=== PATIENT | female | born 1975 | race Hispanic/Latino ===

== ENCOUNTER 2025-03-29 16:04 | Emergency (ER) | payer SELFPAY ==
[2025-03-29 16:06] VITALS: BP 143/96
[2025-03-29 16:34] VITALS: BMI 28.0
--- NOTE | 2025-03-29 16:39 | EDRN ---
Alana Hopper CLOTH SPONGER in room w/pt at this time. Language line in room.
[2025-03-29 16:43] LABS: Hematocrit 38.8 % (37.0-47.0); Hemoglobin 13.8 g/dL (12.0-16.0); Mean Corp Hgb Conc. 35.6 g/dL (33.0-37.0); Mean Corpuscular Volume 86.2 fL (81.0-99.0); Nucleated Red Blood Cells % 0 %; Platelet Count 244 10^3/uL (130-400); Red Cell Dist. Width 12.0 % (11.5-14.5)
[2025-03-29] MEDS: NSS 1000 IV (16:44)
[2025-03-29] MEDS: DILAUDID 0.5 MG IV (16:44)
[2025-03-29] MEDS: ZOFRAN 4 MG IV (16:45)
[2025-03-29 16:51] VITALS: BP 144/88
[2025-03-29 16:53] LABS: HCG, Serum Qualitative Screen Negative
[2025-03-29 16:57] LABS: ALT (SGPT) 40 U/L (0-35); AST (SGOT) 29 U/L (14-36); Albumin 4.8 g/dl (3.5-5.0); Alkaline Phosphatase 121 U/L (38-126); Blood Urea Nitrogen 15 mg/dl (7-17); Calcium 9.0 mg/dl (8.4-10.2); Carbon Dioxide 25 mmol/L (22-30); Chloride 103 mmol/L (98-107); Estimated Creatinine Clearance 85 ml/min; Glucose 131 mg/dl (70-99); Lipase 136 U/L (23-300); Potassium 3.6 mmol/L (3.5-5.1); Sodium 138 mmol/L (135-145); Total Protein 7.8 g/dl (6.3-8.2); eGFR > 60.00
--- NOTE | 2025-03-29 17:13 | EDRN ---
Pt is aware urine spec is needed w/ cup and wipes placed in BR.
[2025-03-29 18:19] VITALS: BP 129/80
--- NOTE | 2025-03-29 18:27 | EDRN ---
Urine spec obtained and sent. Pt is pain free. Pt is awaiting to go to [facility] a this time.
[2025-03-29 18:37] LABS: Urine Character Slightly Cloudy (Clear)
--- NOTE | 2025-03-29 18:38 | EDRN ---
[facility] cancelled at this time.
[2025-03-29 18:47] LABS: Urine Squamous Cell 0-2 /LPF (Few); Urine White Cell 0-2 /HPF (0-5)
--- NOTE | 2025-03-29 18:48 | ED.GENMED ---
History of Present Illness
General
Chief Complaint: Abdominal Pain
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
Exam Limitations: none
Time Seen by Provider: 03/29/25 16:36
Nursing documentation reviewed up to this point in time: agreed with
History of Present Illness
History of Present Illness:
Patient to the emergency department with complaint of severe left lower quadrant abdominal pain. Symptoms started today. Denies fever or chills. Reports nausea and vomiting. Denies any diarrhea. Pain does not radiate. Has no aggravating or
alleviating factors. Denies any urinary symptoms. No prior history of same. She was brought to the emergency department by her [id number] for evaluation.
Past History
Past History
ED Past Medical History: HTN and Hypercholesterolemia
Review of Systems
Review of Systems
Allergies reviewed?: Yes
All Other Systems: ROS reviewed and negative except as documented in HPI and ROS
Constitutional: Reports no symptoms
EENT: Reports no symptoms
Respiratory: Reports no symptoms
Cardiac: Reports no symptoms
ABD/GI: Reports abdominal pain (Severe left lower quadrant abdominal pain), nausea and vomiting
: Reports no symptoms
Musculoskeletal: Reports no symptoms
Skin: Reports no symptoms
Neurological: Reports no symptoms
Psychiatric: Reports no symptoms
Phy Exam
General Physical Exam
General Presentation: moderate distress
General age: appears stated age
General Skin: warm and dry
General Habitus: normal
General Mental: alert
Cardiovascular Exam
Cardiovascular Exam: regular rate/rhythm and no edema
Gastrointestinal Exam
Gastrointestinal Exam: normal bowel sounds, soft, no organomegaly, no pulsatile mass and non distended
Palpation: left upper quadrant: Moderate tenderness, left lower quadrant: No tenderness, right upper quadrant: No tenderness and right lower quadrant: No tenderness
Musculoskeletal Exam
Musculoskeletal Exam: full ROM
Skin Exam
Skin Exam: normal color, warm/dry and no rash
Psychiatric Exam
Psychiatric Exam: normal mood/affect
Course
Orders/Labs/Results
Orders:
Orders
03/29/25 16:18
Cardiac Monitoring- Treatment ONCE
IV Insert/Care/Rem.- Treatment PRN
03/29/25 16:22
Test Result ONCE
03/29/25 16:29
Complete Blood Count/With Diff Urgent
Comprehensive Metabolic Panel Urgent
HCG, Serum Qualitative Screen Urgent
Lipase Urgent
03/29/25 16:40
0.9% Sodium Chloride 1000 ml [Nss] 1,000 ml IV BOLUS
HYDROmorphone [Dilaudid] 0.5 mg IV NOW STA
Ondansetron Injectable [Zofran] 4 mg IV NOW STA
03/29/25 16:41
CT Abd/pelvis W Iv Cont Urgent
Comment:
Reason For Exam: LLQ pain
HYDROmorphone [Dilaudid] 0.5 mg .ROUTE .STK-MED ONE
Ondansetron Injectable [Zofran] 4 mg .ROUTE .STK-MED ONE
03/29/25 18:24
Urinalysis Reflex To Culture Urgent
Date Specimen was Collected: 03/29/25
Time Specimen was Collected: 18:21
Urine Microscopic Reflex Cult Urgent
03/29/25 18:40
Ketorolac [Toradol] 30 mg IV NOW STA
Tamsulosin [Flomax] 0.4 mg PO NOW STA
Abnormal Lab Results
03/29/25 03/29/25
16:29 18:24
WBC 11.0 H 10^3/uL
(4.8-10.8)
Absolute Neuts (auto) 8.5 H 10^3/uL
(1.4-6.5)
Neutrophils % 77.2 H %
(42.2-75.2)
Lymphocytes % 16.2 L %
(20.5-51.1)
Glucose 131 H mg/dl
(70-99)
ALT 40 H U/L
(0-35)
Urine Ketones 3+ A
(Negative)
Ur Occult Blood Reflex 4+ A
(Negative)
Urine RBC 3-6 A /HPF
(0-2)
Urine Bacteria (Reflex) Few A
(Negative)
Urine Albumin (Reflex) 1+ A
(Neg - Trace)
03/29/25 16:29
03/29/25 16:29
Vital Signs
Initial and Last Documented VS:
Initial Vital Signs
Temp Pulse Resp BP Pulse Ox
97.9 F 79 18 143/96 94
03/29/25 16:06 03/29/25 16:06 03/29/25 16:06 03/29/25 16:06 03/29/25 16:06
Last Documented Vital Signs
Temp Pulse Resp BP Pulse Ox
97.9 F 77 14 129/80 98
03/29/25 16:06 03/29/25 18:19 03/29/25 18:19 03/29/25 18:19 03/29/25 18:54
*Radiology
Radiology exam reviewed: radiology read reviewed
*Pulse Oximetry
SaO2: 98
Oxygen Mode of Delivery: Room air
Patient hypoxic: no
*Critical Care Note
Total Time (30-74mins, 75-104mins- exclusive of procedures): Not Applicable
Update Note
Update Note:
Patient to the emergency department with complaint of severe left lower quadrant abdominal pain. Symptoms started earlier today. Pain does not radiate, no aggravating or alleviating factors. Vital signs are stable and she remains afebrile. Labs
reviewed. WBC 11.0. UA with +4 occult blood. No evidence of UTI. She was sent for abdominal CT which reveals a 3 mm partially obstructing calculus at the left UVJ. She was given IV fluids, Dilaudid, and Zofran while in the emergency department
and had complete resolution of her symptoms. CT results discussed with her and her [id number]. She will be discharged home tonight. Prescription for pain medication Flomax and Zofran were sent to her pharmacy. She will contact continue
ibuprofen every 6 hours as needed for pain. She was also given instructions on straining her urine. She will follow-up outpatient with urology. Patient was given instructions on signs and symptoms to return to the emergency department and she is
agreeable with this plan.
ED Attending Note
-
Portions of this chart may have been created with voice recognition software.� Occasional wrong word or��sound alike� substitutions may have occurred due to the inherent limitations of voice recognition software.
Discharge Plan
Departure
Patient Disposition: Home (Routine Discharge)
Date of Disposition: 03/29/25
Time of Disposition: 18:41
Patient with high blood pressure during this ER visit?: No
Condition: Good
Covid-19: Not Applicable
Discharge Problem:
Kidney stone
Instructions: Kidney Stones (DC), Ibuprofen, How to Strain Your Urine
Prescriptions:
New
oxycodone 5 mg capsule
5 mg PO Q4H PRN (Reason: Pain) Qty: 15 0RF
tamsulosin 0.4 mg capsule
0.4 mg PO DAILY Qty: 14 0RF
ondansetron HCl 4 mg tablet
4 mg PO TID PRN (Reason: nausea and vomiting) 4 Days Qty: 12 0RF
Referrals:
Memo Kamara MD [Active, Urology] - Call in 1-3 days for appt
Activity Restrictions/Additional Instructions:
Follow-up with Dr. Kaamra for further evaluation and treatment of your kidney stone. Return to the emergency department immediately for fever/chills, vomiting weaved by zofran, worsening pain that is not managed with pain medication, or for any
further concerns.
Interventions
Interventions:
*Risk Screen - Suicide Last Done: 03/29/25 16:06
*General Assessment Last Done: 03/29/25 16:32
*Neglect/Abuse Screening Last Done: 03/29/25 16:06
*ED- Fall Risk Assessment Last Done: 03/29/25 16:32
*ED COVID-19 Vaccine History Last Done: 03/29/25 16:06
*ED Influenza Vaccine History Last Done: 03/29/25 16:06
HG-Uvmsis-Uzoyyvvobw Assessment Last Done: 03/29/25 16:32
Discharge Date and Time
Print Language: YI
[2025-03-29] MEDS: TORADOL 30 MG IV (18:58)
[2025-03-29] MEDS: FLOMAX 0.4 MG PO (18:58)
[2025-03-29 19:39] VITALS: BP 118/83
== END 2025-03-29 19:56 | disposition home or self-care (01) ==
LOC: EMR 16:04
PROVIDERS: Nurse Practitioner; EMERGENCY PHYSICIAN Emergency Medicine
DX: N20.2 Calculus of kidney with calculus of ureter (principal); I10 Essential (primary) hypertension; E78.00 Pure hypercholesterolemia, unspecified
CPT/HCPCS: 99284; 96374; 96375 ×2; 96361; 74177; 80053; 81003; 81015; 83690; 84703; 85025; Q9967